=== PATIENT | female | born 1990 | race Hispanic/Latino ===

== ENCOUNTER 2017-06-28 20:08 | Emergency (ER) | payer MEDICAID ==
[2017-06-28 20:26] VITALS: BP 114/84
== END 2017-06-28 21:57 | disposition left against medical advice (07) ==
LOC: ED 20:08
DX: M54.5 Low back pain (principal); Z53.21 Procedure and treatment not carried out due to patient leaving prior to being seen by health care provider

== ENCOUNTER 2018-03-18 13:14 | Emergency (ER) | payer MEDICAID ==
[2018-03-18 13:25] VITALS: BP 108/71
[2018-03-18] MEDS ORDERED: IBUPROFEN PO ONE (13:33)
--- NOTE | 2018-03-18 13:48 | Emergency Department Report ---
ED Lower Extremity HPI - General Chief Complaint: Extremity Problem,Nontraumatic Stated Complaint: BLOOD CLOT (R) LEG Time Seen by Provider: 03/18/18 13:29 Source: patient Mode of arrival: Ambulatory Limitations: No Limitations - History of Present Illness Initial Comments: This is a 27-year-old female nontoxic, well nourished in appearance, no acute si gns of distress presents to the ED with c/o of right knee pain. Patient stated that a few days she was bathing her child and heard a pop sensation and went to see her orthopedic doctor, Dr. Goyal. Patient stated due to the patient having pain in the knee with radiating behind knee, Dr. Goyal was concerned about DVT and was sent to the ED for doppler studies. Patient denies any trauma. Patient stated has MRI appointment of the knee from Dr. Goyal as well. Patient denies any numbness, tingling, fever, chills, nausea, vomiting, chest pain, shortness of breath, headache, stiff neck. Patient denies any joint swelling or joint redness. Patient denies decreased range of motion. Patient stated has decreased gait due to pain. Patient stated allergies to latex and tramadol. MD Complaint: knee injury Injury: Knee: Right Severity: mild Severity scale (0 -10): 8 Improves With: immobilization Worsens With: weight bearing, movement, palpation Associated Symptoms: able to partially bear weight, ambulatory. denies: s nap/pop sensation, swelling, numbness, tingling, unable to bear weight - Related Data Home Medications Medication Instructions Recorded Confirmed Last Taken ARIPiprazole [Abilify] 5 mg PO DAILY 01/29/18 01/29/18 Unknown Cymbalta 60 mg PO DAILY 01/29/18 01/29/18 Unknown Diclofenac Sodium [Voltaren] 100 gm TP QID 01/29/18 01/29/18 Unknown Gabapentin [Neurontin] 300 mg PO Q8HR 01/29/18 01/29/18 Unknown HYDROcodone/APAP 7.5-325 [Saxon 1 each PO DAILY 01/29/18 01/29/18 Unknown 7.5/325] Meloxicam [Mobic] 15 mg PO DAILY 01/29/18 01/29/18 Unknown Previous Rx's Medication Instructions Recorded Last Taken Type HYDROcodone/APAP 5-325 [Saxon 1 each PO Q4HR PRN #12 tablet 01/29/18 Unknown Rx 5/325] Ibuprofen [Motrin] 600 mg PO Q8H PRN #20 tablet 01/29/18 Unknown Rx methOCARBAMOL [Robaxin TAB] 500 mg PO Q6H PRN #15 tablet 01/29/18 Unknown Rx Ibuprofen [Motrin] 600 mg PO Q8H PRN #20 tablet 03/18/18 Unknown Rx Allergies Allergy/AdvReac Type Severity Reaction Status Date / Time latex Allergy Rash Verified 11/07/13 09:58 tramadol [From Ultram] AdvReac Unknown Verified 03/18/18 13:25 ED Review of Systems ROS: Stated complaint: BLOOD CLOT (R) LEG Other details as noted in HPI Constitutional: denies: chills, fever Eyes: denies: eye pain, eye discharge, vision change ENT: denies: ear pain, throat pain Respiratory: denies: cough, shortness of breath, wheezing Cardiovascular: denies: chest pain, palpitations Endocrine: no symptoms reported Gastrointestinal: denies: abdominal pain, nausea, diarrhea Genitourinary: denies: urgency, dysuria, discharge Musculoskeletal: denies: back pain, joint swelling, arthralgia Skin: denies: rash, lesions Neurological: denies: headache, weakness, paresthesias Psychiatric: denies: anxiety, depression Hematological/Lymphatic: denies: easy bleeding, easy bruising ED Past Medical Hx - Past Medical History Previous Medical History?: Yes Hx Hypertension: No Hx Congestive Heart Failure: No Hx Diabetes: No Hx Deep Vein Thrombosis: No Hx Renal Disease: No Hx Sickle Cell Disease: No Hx Arthritis: Yes Hx Seizures: No Hx Psychiatric Treatment: Yes (DEPRESSION,ANXIETY) Hx Asthma: No Hx COPD: No Hx HIV: No Additional medical history: chronic back pain///BULGING,HYPER MOBILE HIPS,PELVIC MISALINGMENT - Surgical History Past Surgical History?: Yes Additional Surgical History: tonsillectomy,DENTAL - Social History Smoking Status: Current Every Day Smoker Substance Use Type: None - Medications Home Medications: Home Medications Medication Instructions Recorded Confirmed Last Taken Type ARIPiprazole [Abilify] 5 mg PO DAILY 01/29/18 01/29/18 Unknown History Cymbalta 60 mg PO DAILY 01/29/18 01/29/18 Unknown History Diclofenac Sodium [Voltaren] 100 gm TP QID 01/29/18 01/29/18 Unknown History Gabapentin [Neurontin] 300 mg PO Q8HR 01/29/18 01/29/18 Unknown History HYDROcodone/APAP 5-325 [Saxon 1 each PO Q4HR PRN #12 tablet 01/29/18 Unknown Rx 5/325] HYDROcodone/APAP 7.5-325 [Saxon 1 each PO DAILY 01/29/18 01/29/18 Unknown History 7.5/325] Ibuprofen [Motrin] 600 mg PO Q8H PRN #20 tablet 01/29/18 Unknown Rx Meloxicam [Mobic] 15 mg PO DAILY 01/29/18 01/29/18 Unknown History methOCARBAMOL [Robaxin TAB] 500 mg PO Q6H PRN #15 tablet 01/29/18 Unknown Rx Ibuprofen [Motrin] 600 mg PO Q8H PRN #20 tablet 03/18/18 Unknown Rx ED Physical Exam - General Limitations: No Limitations General appearance: alert, in no apparent distress - Head Head exam: Present: atraumatic, normocephalic - Neck Neck exam: Present: normal inspection, full ROM - Extremities Exam Extremities exam: Present: normal inspection, full ROM, tenderness, normal capillary refill. Absent: joint swelling, calf tenderness - Expanded Lower Extremity Exam Right Hip exam: Present: normal inspection, full ROM. Absent: tenderness Upper Leg exam: Present: normal inspection, full ROM. Absent: tenderness Knee exam: Present: normal inspection, full ROM, tenderness, swelling, full knee extension. Absent: abrasion, laceration, ecchymosis, deformity, crepidus, dislocation, erythema, effusion, pain w/ pronation/supination, pain/laxity with valgus, pain/laxity with varus Lower Leg exam: Present: normal inspection, full ROM. Absent: tenderness, H reji's sign Ankle exam: Present: normal inspection, full ROM. Absent: tenderness Foot/Toe exam: Present: normal inspection, full ROM. Absent: tenderness Neuro vascular tendon exam: Present: no vascular compromise Gait: Positive: observed and limited by pain - Back Exam Back exam: Present: normal inspection, full ROM - Neurological Exam Neurological exam: Present: alert, oriented X3 - Psychiatric Psychiatric exam: Present: normal affect, normal mood - Skin Skin exam: Present: warm, dry, intact, normal color. Absent: rash ED Course Vital Signs 03/18/18 13:22 Temperature 98.0 F Pulse Rate 97 H Respiratory 16 Rate Blood Pressure 108/71 O2 Sat by Pulse 97 Oximetry - Reevaluation(s) Reevaluation #1: 03/18/18 13:50 Patient is speaking in full sentences with no signs of distress noted. ED Lower Extremity MDM - Medical Decision Making This is a 27-year-old female that presents with right knee strain. Patient is stable and was examined by me. I referred patient to an orthopedic doctor for further evaluation for possible MRI. Doppler studies negative for DVT and dictated by the radiologist. X-ray has been obtained and dictated by the radiologist. Patient is notified of the x-ray report with noted by the patient. Patient does have normal gait with no tenderness and no joint swelling. No ecchymosis. no joint redness or swelling. Not warm to touch. No signs of cell ulites present. Patient received a knee immobilize. Patient was instructed to RICE therapy. Patient received Motrin for pain. Patient is discharged with Motrin. At time of discharge, the patient does not seem toxic or ill in appearance. No acute signs of distress noted. Patient agrees to discharge treatment plan of care. No further questions noted by the patient. Critical care attestation.: If time is entered above; I have spent that time in minutes in the direct care of this critically ill patient, excluding procedure time. ED Disposition Clinical Impression: Strain of right knee Qualifiers: Encounter type: initial encounter Qualified Code(s): S86.911A - Strain of u nspecified muscle(s) and tendon(s) at lower leg level, right leg, initial encounter Disposition: - TO HOME OR SELFCARE Is pt being admited?: No Does the pt Need Aspirin: No Condition: Stable Instructions: Knee Immobilizer (ED), Knee Pain (ED) Additional Instructions: Follow-up with a orthopedic doctor in 3-5 days or if symptoms worsen and continue return to emergency room as soon as possible. Prescriptions: Ibuprofen [Motrin] 600 mg PO Q8H PRN #20 tablet PRN Reason: Pain Referrals: EMMETT ALVARADO [Other] - 3-5 Days ALLY MILES MD [Staff Physician] - 3-5 Days [facility] [Outside] - 3-5 Days Forms: Work/School Release Form(ED)
--- NOTE | 2018-03-18 15:02 | Vascular Lab Report ---
FINAL REPORT EXAM: VL VENOUS DUPLEX LE RT HISTORY: Pain, swelling RLE TECHNIQUE: Grayscale and color and spectral Doppler ultrasound imaging of the right lower extremity was performed for the purposes of assessing for deep venous thrombosis. PRIORS: None. FINDINGS: No evidence of deep venous thrombosis is seen within the right common femoral through the popliteal v eins. Note that the posterior tibial and peroneal veins are likely patent however evaluation of this area is somewhat limited. Incidentally the left common femoral and proximal superficial femoral veins are patent. IMPRESSION: Somewhat limited evaluation of the right calf veins. Negative for DVT within the right common femoral through popliteal veins.
== END 2018-03-18 15:38 | disposition home or self-care (01) ==
LOC: ED 13:14
DX: S86.911A Strain of unspecified muscle(s) and tendon(s) at lower leg level, right leg, initial encounter (principal); F32.9 Major depressive disorder, single episode, unspecified; F41.9 Anxiety disorder, unspecified; M54.9 Dorsalgia, unspecified; G89.29 Other chronic pain; M19.90 Unspecified osteoarthritis, unspecified site; F17.200 Nicotine dependence, unspecified, uncomplicated; Z90.89 Acquired absence of other organs; Z91.040 Latex allergy status; Z88.5 Allergy status to narcotic agent; W22.8XXA Striking against or struck by other objects, initial encounter; Y93.89 Activity, other specified; Y92.091 Bathroom in other non-institutional residence as the place of occurrence of the external cause; Y99.8 Other external cause status

== ENCOUNTER 2018-08-03 13:22 | Emergency (ER) | payer MEDICAID ==
[2018-08-03 13:30] VITALS: BP 127/82
--- NOTE | 2018-08-03 13:31 | Emergency Department Report ---
Chief Complaint: Nausea/Vomiting/Diarrhea Stated Complaint: FOOD POISON Time Seen by Provider: 08/03/18 13:27 - HPI History of Present Illness: This is a 28 y.o. F. that presents to the ER with suspicion of food poisoning. Patient states she ate undercooked [place] toast Thursday and sick every since. Reports n/v/d, and diffuse abdominal cramping. - Exam Vital Signs: Vital Signs 08/03/18 13:27 Temperature 97.5 F L Pulse Rate 77 Respiratory 18 Rate Blood Pressure 127/82 [Left] O2 Sat by Pulse 100 Oximetry MSE screening note: Focused history and physical exam performed. Due to findings the following was ordered: This initial assessment/diagnostic orders/clinical plan/treatment(s) is/are subject to change based on patient's health status, clinical progression and re-assessment by fellow clinical providers in the ED. Further treatment and workup at subsequent clinical providers discretion. Patient/guardians urged not to elope from the ED as their condition may be serious if not clinically assessed and managed. Initial orders include: 1- Patient sent to [facility] for further evaluation and treatment 2- Labs ED Disposition for MSE Condition: Stable
[2018-08-03 13:51] LABS: Hematocrit 46.3 % (30.3-42.9); Hemoglobin 15.6 gm/dl (10.1-14.3); Mean Corpuscular HGB Conc 34 % (30-34); Mean Corpuscular Volume 94 fl (79-97); Platelet Count 375 K/mm3 (140-440); Red Blood Count 4.91 M/mm3 (3.65-5.03); Red Cell Distribution Width 13.4 % (13.2-15.2)
[2018-08-03] MEDS ORDERED: ZOFRAN ODT PO ONE (14:44)
[2018-08-03] MEDS ORDERED: ZOFRAN ODT ONE (14:47)
--- NOTE | 2018-08-03 15:08 | Emergency Department Report ---
ED N/V/D HPI - General Chief complaint: Nausea/Vomiting/Diarrhea Stated complaint: FOOD POISON Time Seen by Provider: 08/03/18 13:27 Source: patient Mode of arrival: Ambulatory Limitations: No Limitations - History of Present Illness Initial comments: PT is a 28-year-old female who comes to the emergency room because she thinks she has food poisoning. She's had generalized fatigue and nausea and vomiting. She states her last menstrual cycle was 2 weeks ago. She denies vaginal discharge. no fever or chills. no back pain. She states that she ate out last night. Patient has dry heaving while on exam. Patient has a psychiatric history but denies major medical problems. She states she is only been able to keep her Cymbalta down. Nothing has made the vomiting stopped. She attempts to eat it makes it worse. - Related Data Home Medications Medication Instructions Recorded Confirmed Last Taken Cymbalta 60 mg PO DAILY 01/29/18 01/29/18 Unknown Gabapentin [Neurontin] 300 mg PO Q8HR 01/29/18 01/29/18 Unknown Previous Rx's Medication Instructions Recorded Last Taken Type Nitrofurantoin Franklin/M-Cryst 100 mg PO Q12HR #14 capsule 08/03/18 Unknown Rx [Macrobid CAP] Ondansetron [Zofran Odt] 4 mg PO Q8HR PRN #10 tab.rapdis 08/03/18 Unknown Rx Allergies Allergy/AdvReac Type Severity Reaction Status Date / Time latex Allergy Rash Verified 08/03/18 13:24 tramadol [From Ultram] AdvReac Unknown Verified 08/03/18 13:24 ED Review of Systems ROS: Stated complaint: FOOD POISON Other details as noted in HPI Comment: All other systems reviewed and negative ED Past Medical Hx - Past Medical History Hx Hypertension: No Hx Congestive Heart Failure: No Hx Diabetes: No Hx Deep Vein Thrombosis: No Hx Renal Disease: No Hx Sickle Cell Disease: No Hx Arthritis: Yes Hx Seizures: No Hx Psychiatric Treatment: Yes (DEPRESSION,ANXIETY, psychosis) Hx Asthma: No Hx COPD: No Hx HIV: No Additional medical history: chronic back pain///BULGING,HYPER MOBILE HIPS,PELVIC MISALINGMENT - Surgical History Additional Surgical History: tonsillectomy,DENTAL - Family History Family history: no significant - Social History Smoking Status: Never Smoker Substance Use Type: None - Medications Home Medications: Home Medications Medication Instructions Recorded Confirmed Last Taken Type Cymbalta 60 mg PO DAILY 01/29/18 01/29/18 Unknown History Gabapentin [Neurontin] 300 mg PO Q8HR 01/29/18 01/29/18 Unknown History Nitrofurantoin Franklin/M-Cryst 100 mg PO Q12HR #14 capsule 08/03/18 Unknown Rx [Macrobid CAP] Ondansetron [Zofran Odt] 4 mg PO Q8HR PRN #10 tab.rapdis 08/03/18 Unknown Rx ED Physical Exam - General Limitations: No Limitations General appearance: alert - Head Head exam: Present: normocephalic - Eye Eye exam: Present: normal appearance - ENT ENT exam: Present: mucous membranes moist - Neck Neck exam: Present: normal inspection, full ROM - Respiratory Respiratory exam: Present: normal lung sounds bilaterally - Cardiovascular Cardiovascular Exam: Present: regular rate - GI/Abdominal GI/Abdominal exam: Present: soft, normal bowel sounds - Rectal Rectal exam: Present: deferred - Extremities Exam Extremities exam: Present: normal inspection, full ROM - Back Exam Back exam: Present: normal inspection, full ROM. Absent: CVA tenderness (R), CVA tenderness (L) - Neurological Exam Neurological exam: Present: alert, normal gait - Psychiatric Psychiatric exam: Present: normal affect, normal mood - Skin Skin exam: Present: warm, dry, intact ED Course Vital Signs 08/03/18 13:27 Temperature 97.5 F L Pulse Rate 77 Respiratory 18 Rate Blood Pressure 127/82 [Left] O2 Sat by Pulse 100 Oximetry ED Medical Decision Making - Lab Data Result diagrams: 08/03/18 13:33 08/03/18 13:33 - Medical Decision Making Lab Results 08/03/18 08/03/18 08/03/18 Range/Units 13:33 13:33 14:45 WBC 14.8 H (4.5-11.0) K/mm3 RBC 4.91 (3.65-5.03) M/mm3 Hgb 15.6 H (10.1-14.3) gm/dl Hct 46.3 H (30.3-42.9) % MCV 94 (79-97) fl MCH 32 (28-32) pg MCHC 34 (30-34) % RDW 13.4 (13.2-15.2) % Plt Count 375 (140-440) K/mm3 Sodium 139 (137-145) mmol/L Potassium 3.7 (3.6-5.0) mmol/L Chloride 92.6 L (98-107) mmol/L Carbon Dioxide 26 (22-30) mmol/L Anion Gap 24 mmol/L BUN 16 (7-17) mg/dL Creatinine 0.7 (0.7-1.2) mg/dL Estimated GFR > 60 ml/min BUN/Creatinine Ratio 23 % Glucose 140 H (65-100) mg/dL Calcium 10.1 (8.4-10.2) mg/dL Total Bilirubin 0.30 (0.1-1.2) mg/dL AST 11 (5-40) units/L ALT 13 (7-56) units/L Alkaline Phosphatase 69 (35-129) units/L Total Protein 8.7 H (6.3-8.2) g/dL Albumin 4.8 (3.9-5) g/dL Albumin/Globulin Ratio 1.2 % Lipase 12 L (13-60) units/L Urine Color Marj (Yellow) Urine Turbidity Cloudy (Clear) Urine pH 5.0 (5.0-7.0) Ur Specific [place] 1.026 (1.003-1.030) Urine Protein 30 mg/dl (Negative) mg/dL Urine Glucose (UA) Neg (Negative) mg/dL Urine Ketones Tr (Negative) mg/dL Urine Blood Sm (Negative) Urine Nitrite Neg (Negative) Ur Reducing Substances Not Reportable Urine Bilirubin Neg (Negative) Urine Ictotest Not Reportable Urine Urobilinogen 2.0 (<2.0) mg/dL Ur Leukocyte Esterase Mod (Negative) Urine WBC (Auto) 16.0 H (0.0-6.0) /HPF Urine RBC (Auto) 11.0 (0.0-6.0) /HPF U Epithel Cells (Auto) 65.0 H (0-13.0) /HPF Urine Bacteria (Auto) 1+ (Negative) /HPF Urine Mucus 3+ /HPF Urine HCG, Qual Negative (Negative) Vital Signs 08/03/18 13:27 Temperature 97.5 F L Pulse Rate 77 Respiratory 18 Rate Blood Pressure 127/82 [Left] O2 Sat by Pulse 100 Oximetry ZOFRAN WITH RELIEF OF N/V TAKING PO LABS NOTED UA NOTED PREG NEG PT REPORTS FREQ UTI IN PAST DC HOME WITH RX AND FOLLOW UP Critical care attestation.: If time is entered above; I have spent that time in minutes in the direct care of this critically ill patient, excluding procedure time. ED Disposition Clinical Impression: UTI (urinary tract infection) Disposition: DC-01 TO HOME OR SELFCARE Is pt being admited?: No Does the pt Need Aspirin: No Condition: Stable Instructions: Urinary Tract Infection in Women (ED) Additional Instructions: HYDRATE WELL WITH WATER MED ORDERED TODAY TAKE HOME MEDS FOLLOW UP THURSDAY WITH PCP TO BE SURE YOU ARE GETTING BETTER Prescriptions: Nitrofurantoin Franklin/M-Cryst [Macrobid CAP] 100 mg PO Q12HR #14 capsule Ondansetron [Zofran Odt] 4 mg PO Q8HR PRN #10 tab.rapdis PRN Reason: Vomiting [facility] - 3-5 Days Time of Disposition: 15:26
[2018-08-03 15:15] LABS: HCG Qualitative,Urine Negative (Negative)
[2018-08-03 15:15] LABS: Alanine Aminotransferase 13 units/L (7-56); Albumin 4.8 g/dL (3.9-5); BUN/Creatinine Ratio 23; Blood Urea Nitrogen 16 mg/dL (7-17); Calcium 10.1 mg/dL (8.4-10.2); Hemolysis Index 4
[2018-08-03 15:20] LABS: Bacteria,Urine 1+ /HPF (Negative); Bilirubin,Urine NEG (Negative); Blood,Urine SM (Negative); Color,Urine Amber (Yellow); Mucus,Urine 3+ /HPF
== END 2018-08-03 15:38 | disposition home or self-care (01) ==
LOC: ED 13:22
DX: N39.0 Urinary tract infection, site not specified (principal); F32.9 Major depressive disorder, single episode, unspecified; F29 Unspecified psychosis not due to a substance or known physiological condition; M19.90 Unspecified osteoarthritis, unspecified site; F41.9 Anxiety disorder, unspecified; G89.29 Other chronic pain; Z90.89 Acquired absence of other organs; Z98.890 Other specified postprocedural states; Z91.040 Latex allergy status; Z88.6 Allergy status to analgesic agent
CPT/HCPCS: 36415; 80053; 81001; 81025; 83690; 85027; Q0162